=== PATIENT | male | born 1970 | race Caucasian/White ===

== ENCOUNTER → 2016-10-10 | Outpatient (CLI) | payer OTHER ==
--- NOTE | 2016-10-10 10:57 | KCIC ---
MR of the left elbow Indication:Left elbow pain since May 2016. No injury. Pain with extension. Tendinitis. Technique: Standard multiplanar sequences are obtained. Findings: Anterior: Biceps tendon and brachialis tendon are intact. Posterior: The triceps tendon and insertion are intact. Medial: Common flexor tendon intact. Mild thickening and signal at the proximal ulnar collateral ligament, questionable significance, could indicate mild degeneration or scarring. No acute tear, rupture or laxity. No adjacent acute edema. Lateral: Mild thickening and signal within the common extensor tendon attachment compatible with mild tendinosis. Proximal radial collateral ligament and lateral ulnar collateral ligament are intact. Fluid: No significant effusion. Joints: No advanced DJD. Bones: No focal lesion. No acute fracture. Soft tissues: No concerning edema or fluid accumulation Ulnar nerve: Unremarkable Impression: 1. Mild common extensor tendinosis without high-grade tear. 2. Mild proximal ulnar collateral ligament thickening of questionable significance. Could represent mild degeneration or scarring, but no acute tear or rupture. Electronically signed by: Delroy Sharp MD (10/10/2016 10:54 AM) [facility]
== END | disposition home or self-care (01) ==
LOC: KCIC MRI 09:00
PROVIDERS: ATTEND Orthopaedic Surgery Sports Medicine
DX: M25.522 Pain in left elbow (principal)
CPT/HCPCS: 73221

== ENCOUNTER 2017-07-07 14:30 | Inpatient (IN) | payer OTHER ==
[2017-07-07] MEDS: diazePAM 5 MG TABLET PO ×2 (14:54→22:48)
[2017-07-07] MEDS ORDERED: ACETAMINOPHEN 325 MG TABLET. PO (15:00)
[2017-07-07 15:09] LABS: ADD MAN DIFF? NO
[2017-07-07 15:13] LABS: BASO # 0.1 x10^3/uL (0.0-0.2); BASO % 0 % (0-3); EOS % 0 % (0-3); HEMOGLOBIN 17.9 g/dL (13.0-17.5); LYMPH # 1.6 x10^3/uL (1.0-4.8); LYMPH % 12 % (24-48); MEAN CORPUSCULAR HEMOGLOBIN 32 pg (25-35); MEAN CORPUSCULAR HGB CONC 36 g/dL (31-37); MEAN CORPUSCULAR VOLUME 88 fL (79-100); MONO # 0.9 x10^3/uL (0.0-1.1); MONO % 7 % (0-9); NEUT # 10.5 x10^3uL (1.8-7.7); NEUT % 80 % (31-73); PLATELET COUNT 212 x10^3/uL (140-400); RED BLOOD COUNT 5.67 x10^6/uL (4.30-5.70); RED CELL DISTRIBUTION WIDTH 12.2 % (11.5-14.5); WHITE BLOOD COUNT 13.1 x10^3/uL (4.0-11.0)
[2017-07-07] MEDS: ONDANSETRON PF 4 MG/2 ML VIAL. IV (15:16)
[2017-07-07] MEDS: MORPHINE SULFATE 4 MG/ML DISP.SYRIN. IV ×4 (15:17→22:48)
[2017-07-07 15:19] LABS: ANION GAP 11 (6-14); BLOOD UREA NITROGEN 17 mg/dL (8-26); CALCIUM 9.1 mg/dL (8.5-10.1); CARBON DIOXIDE 26 mmol/L (21-32); CHLORIDE 97 mmol/L (98-107); GFR 81.2; GLUCOSE 98 mg/dL (70-99); POTASSIUM 4.3 mmol/L (3.5-5.1); SODIUM 134 mmol/L (136-145)
[2017-07-07 16:31] LABS: BILIRUBIN,URINE NEGATIVE (NEG); CLARITY,URINE CLEAR; COLOR,URINE YELLOW; GLUCOSE,URINE NEGATIVE (NEG); NITRITE,URINE NEGATIVE (NEG); PH,URINE 5.5; PROTEIN,URINE NEGATIVE (NEG-TRACE); UROBILINOGEN,URINE 0.2 mg/dL (0.2 mg/dL)
[2017-07-07 16:37] LABS: BACTERIA,URINE 0 /HPF (0-FEW); HYALINE CASTS, URINE OCCASIONAL /HPF; RBC,URINE 0 /HPF (0-2); SQUAMOUS EPITHELIAL CELL,UR OCC /LPF; WBC,URINE 0 /HPF (0-4)
[2017-07-07 16:39] LABS: AMPHETAMINE/METHAMPHETAMINE NEG (NEG); BARBITURATES NEG (NEG); BENZODIAZEPINES POS (NEG); CANNABINOIDS POS (NEG); COCAINE NEG (NEG); ETHANOL, URINE NEG (NEG); METHADONE NEG (NEG); OPIATES POS (NEG); PHENCYCLIDINE NEG (NEG)
[2017-07-08] MEDS: MORPHINE SULFATE 4 MG/ML DISP.SYRIN. IV ×9 (04:33→22:56)
[2017-07-08] MEDS ORDERED: ONDANSETRON PF 4 MG/2 ML VIAL. IV (16:15)
[2017-07-08] MEDS: diazePAM 5 MG TABLET PO (20:47)
[2017-07-09] MEDS: MORPHINE SULFATE 4 MG/ML DISP.SYRIN. IV ×9 (01:11→21:34)
[2017-07-09] MEDS ORDERED: IV RINGERS,LACTATED 1000ML 1,000 ML IV ×2 (09:27)
[2017-07-09] MEDS ORDERED: ONDANSETRON PF 4 MG/2 ML VIAL. IV ×2 (09:30)
[2017-07-09] MEDS ORDERED: fentaNYL PF VIAL 100 MCG/2 ML VIAL IV ×3 (09:30)
[2017-07-09] MEDS ORDERED: PROCHLORPERAZINE 10 MG/2 ML VIAL. IV ×2 (09:30)
[2017-07-09] MEDS ORDERED: MORPHINE SULFATE 2 MG/ML DISP.SYRIN. IV (09:30)
[2017-07-09] MEDS ORDERED: MORPHINE SULFATE 4 MG/ML DISP.SYRIN. IV (09:30)
[2017-07-09] MEDS ORDERED: LIDOCAINE 1% PF 2 ML VIAL. ID (09:30)
[2017-07-09] MEDS ORDERED: PROPOFOL 40 ML IV (10:50)
[2017-07-09] MEDS ORDERED: LIDOCAINE 2% PF Vial for OR 5 ML VIAL. (10:50)
[2017-07-09] MEDS ORDERED: MIDAZOLAM HCL/PF 2 MG/2 ML VIAL. (10:51)
[2017-07-09] MEDS ORDERED: fentaNYL PF VIAL 100 MCG/2 ML VIAL ×3 (11:31→13:47)
[2017-07-09] MEDS ORDERED: KETAMINE HCL 500 MG/10 ML VIAL. (12:01)
[2017-07-09] MEDS: fentaNYL PF VIAL 100 MCG/2 ML VIAL IV ×3 (13:13→13:52)
[2017-07-09] MEDS: LIDOCAINE 1% PF 2 ML VIAL. ID (13:40)
[2017-07-09] MEDS ORDERED: DOCUSATE SODIUM 100 MG CAPSULE. PO (21:30)
[2017-07-09] MEDS: oxyCODONE/APAP 5/325 1 TAB TABLET PO (22:16)
[2017-07-09] MEDS: diazePAM 5 MG TABLET PO (22:23)
[2017-07-10] MEDS: MORPHINE SULFATE 4 MG/ML DISP.SYRIN. IV ×4 (05:58→20:20)
[2017-07-10] MEDS: oxyCODONE/APAP 5/325 1 TAB TABLET PO ×4 (06:33→21:04)
[2017-07-10] MEDS: diazePAM 5 MG TABLET PO ×2 (10:49→22:50)
[2017-07-10] MEDS ORDERED: DOCUSATE SODIUM 100 MG CAPSULE. PO (21:30)
[2017-07-11] MEDS: MORPHINE SULFATE 4 MG/ML DISP.SYRIN. IV ×2 (05:08→20:53)
[2017-07-11] MEDS ORDERED: KETOROLAC 60 MG/2 ML INJ FOR OR. (07:20)
[2017-07-11] MEDS ORDERED: THROMBIN TOPICAL 20,000 UNIT SPRAY.SYRN KIT TP (07:20)
[2017-07-11] MEDS ORDERED: GELATIN SPONGE SIZE 100. (07:20)
[2017-07-11] MEDS: IV RINGERS,LACTATED 1000ML 1,000 ML IV (07:52)
[2017-07-11] MEDS ORDERED: MORPHINE SULFATE 4 MG/ML DISP.SYRIN. IV (08:00)
[2017-07-11] MEDS ORDERED: ONDANSETRON PF 4 MG/2 ML VIAL. IV (08:00)
[2017-07-11] MEDS ORDERED: LIDOCAINE 1% PF 2 ML VIAL. ID (08:00)
[2017-07-11] MEDS ORDERED: fentaNYL PF VIAL 100 MCG/2 ML VIAL IV (08:00)
[2017-07-11] MEDS ORDERED: PROCHLORPERAZINE 10 MG/2 ML VIAL. IV (08:00)
[2017-07-11] MEDS: oxyCODONE/APAP 5/325 1 TAB TABLET PO ×3 (08:09→22:14)
[2017-07-11] MEDS ORDERED: BUPIVAC MPF-EPI 0.5%-1:200000 30 ML VIAL. INJ (09:00)
[2017-07-11] MEDS: BACITRACIN 50,000 UNIT in IV NORMAL SALINE 1000ML BAG 1,000 ML IRR ×2 (09:00→17:28)
[2017-07-11] MEDS ORDERED: MIDAZOLAM HCL/PF 2 MG/2 ML VIAL. (16:32)
[2017-07-11] MEDS ORDERED: ROCURONIUM 50 MG/5 ML VIAL. (16:36)
[2017-07-11] MEDS ORDERED: REMIFENTANIL 1 MG VIAL. IV ×2 (16:36→17:37)
[2017-07-11] MEDS ORDERED: KETOROLAC 30 MG/ML INJ FOR OR. INJ (17:13)
[2017-07-11] MEDS ORDERED: PROPOFOL 20 ML IV ×2 (17:13→17:18)
[2017-07-11] MEDS ORDERED: DEXAMETHASONE SOD PHOS 20 MG/5 ML VIAL. (17:13)
[2017-07-11] MEDS ORDERED: ONDANSETRON PF 4 MG/2 ML VIAL. (17:13)
[2017-07-11] MEDS ORDERED: ISOFLURANE 61 TO 120 MINUTES. IH (17:13)
[2017-07-11] MEDS: GELATIN SPONGE SIZE 100. (17:28)
[2017-07-11] MEDS: BUPIVAC MPF-EPI 0.5%-1:200000 30 ML VIAL. INJ (17:28)
[2017-07-11] MEDS: THROMBIN TOPICAL 20,000 UNIT SPRAY.SYRN KIT TP (17:28)
[2017-07-11] MEDS: KETOROLAC 60 MG/2 ML INJ FOR OR. (17:28)
[2017-07-11] MEDS ORDERED: MORPHINE SULFATE 10 MG/ML VIAL. (17:37)
[2017-07-11] MEDS ORDERED: LABETALOL 20 MG/4 ML DISP.SYRIN. (17:39)
[2017-07-11] MEDS ORDERED: fentaNYL PF VIAL 100 MCG/2 ML VIAL ×2 (19:06→19:18)
[2017-07-11] MEDS: fentaNYL PF VIAL 100 MCG/2 ML VIAL IV ×4 (19:10→19:37)
[2017-07-12] MEDS: MORPHINE SULFATE 4 MG/ML DISP.SYRIN. IV ×6 (01:08→18:34)
[2017-07-12] MEDS: diazePAM 5 MG TABLET PO ×2 (03:26→09:44)
[2017-07-12] MEDS ORDERED: MORPHINE SULFATE 4 MG/ML DISP.SYRIN. (05:40)
[2017-07-12 09:49] LABS: BASO % 0 % (0-3); EOS % 0 % (0-3); HEMATOCRIT 40.1 % (39.0-53.0); LYMPH # 0.7 x10^3/uL (1.0-4.8); LYMPH % 5 % (24-48); MEAN CORPUSCULAR HEMOGLOBIN 31 pg (25-35); MEAN CORPUSCULAR HGB CONC 35 g/dL (31-37); MEAN CORPUSCULAR VOLUME 90 fL (79-100); MONO # 0.4 x10^3/uL (0.0-1.1); MONO % 2 % (0-9); NEUT # 14.6 x10^3uL (1.8-7.7); NEUT % 93 % (31-73); PLATELET COUNT 159 x10^3/uL (140-400); RED BLOOD COUNT 4.47 x10^6/uL (4.30-5.70); RED CELL DISTRIBUTION WIDTH 12.2 % (11.5-14.5); WHITE BLOOD COUNT 15.8 x10^3/uL (4.0-11.0)
[2017-07-12 09:56] LABS: ANION GAP 9 (6-14); BLOOD UREA NITROGEN 12 mg/dL (8-26); CALCIUM 8.9 mg/dL (8.5-10.1); CARBON DIOXIDE 26 mmol/L (21-32); CHLORIDE 101 mmol/L (98-107); CREATININE 0.9 mg/dL (0.7-1.3); GFR 91.7; GLUCOSE 167 mg/dL (70-99); POTASSIUM 3.7 mmol/L (3.5-5.1); SODIUM 136 mmol/L (136-145)
[2017-07-12 09:57] LABS: ADD MAN DIFF? YES
[2017-07-12 11:00] LABS: % BANDS 1 % (0-9); % LYMPHS 5 % (24-48); % MONOS 2 % (0-10); % SEGS 92 % (35-66); PLT ESTIMATE ADEQUATE (ADEQUATE)
[2017-07-12] MEDS: oxyCODONE/APAP 5/325 1 TAB TABLET PO ×3 (14:00→20:55)
[2017-07-12] MEDS: CALCIUM CARBONATE 500 MG TAB.CHEW PO (15:08)
[2017-07-12] MEDS: KETOROLAC TROMETHAMINE 10 MG TABLET PO (20:54)
[2017-07-13] MEDS: oxyCODONE/APAP 5/325 1 TAB TABLET PO (07:57)
[2017-07-13] MEDS: KETOROLAC TROMETHAMINE 10 MG TABLET PO ×2 (07:57→12:03)
[2017-07-13] MEDS: oxyCODONE/APAP 7.5/325 1 TAB TABLET PO (12:03)
== END 2017-07-13 13:00 | disposition home or self-care (01) | DRG 520 ==
LOC: ER 14:30 → 4 NORTH 14:47
PROC: 0SB20ZZ Excision of Lumbar Vertebral Disc, Open Approach (ICD-10-PCS; principal; 2017-07-11 15:45)
DX: M51.16 Intervertebral disc disorders with radiculopathy, lumbar region (principal); Z79.899 Other long term (current) drug therapy
CPT/HCPCS: 36415; 72100; 72148; 76000; 80048; 80307; 81001; 85007; 85025; 96374; 97110-GP; 97116-GP; 97162-GP; 97530-GP; 99285; 99285-25; A7015; G8978-CK-GP; G8979-CJ-GP; J0690; J1100; J1885; J2250; J2270; J2405; J2704; J3010; J3490; J7030

== ENCOUNTER 2018-10-11 12:07 | Emergency (ER) | payer OTHER ==
[~2018-10-11] VITALS: Ht 200.7 cm; Wt 106.6 kg
--- NOTE | 2018-10-11 12:35 | PHYS DOC ---
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 Patient states that his boss was asked to her and soft this happened. Patient states that the boss said that he had to go to the hospital and be checked out before he could return to work. Review of Systems Review of Systems Constitutional: Denies fever or chills [] Eyes: Denies change in visual acuity, redness, or eye pain [] HENT: Denies nasal congestion or sore throat [] Respiratory: Denies cough or shortness of breath [] Cardiovascular: No additional information not addressed in HPI [] GI: Denies abdominal pain, nausea, vomiting, bloody stools or diarrhea [] : Denies dysuria or hematuria [] Musculoskeletal: Fall. Denies back pain or joint pain [] Integument: Denies rash or skin lesions [] Neurologic: Denies headache, focal weakness or sensory changes [] Endocrine: Denies polyuria or polydipsia [] All other systems were reviewed and found to be within normal limits, except as documented in this note. Allergies Allergies Allergies Coded Allergies Type Severity Reaction Last Updated Verified No Known Drug Allergies 07/07/17 No Physical Exam Physical Exam Constitutional: Well developed, well nourished, no acute distress, non-toxic appearance. [] HENT: Normocephalic, atraumatic, bilateral external ears normal, oropharynx moist, no oral exudates, nose normal. [] Eyes: PERRLA, EOMI, conjunctiva normal, no discharge. [] Neck: Normal range of motion, no tenderness, supple, no stridor. [] Cardiovascular:Heart rate regular rhythm, no murmur [] Lungs & Thorax: Bilateral breath sounds clear to auscultation [] Abdomen: Bowel sounds normal, soft, no tenderness, no masses, no pulsatile rodrigue s. [] Skin: Warm, dry, no erythema, no rash. [] Back: No tenderness, no CVA tenderness. [] Extremities: No tenderness, no cyanosis, no clubbing, ROM intact, no edema. [] Neurologic: Alert and oriented X 3, normal motor function, normal sensory function, no focal deficits noted. [] Psychologic: Affect normal, judgement normal, mood normal. 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 Patient states that his boss was asked to her and soft this happened. Patient states that the boss said that he had to go to the hospital and be checked out before he could return to work. Patient denies any pain, injury, hitting his head, LOC, nausea, vomiting, diarrhea, recent illness, chest pain, shortness of air, dizziness, headache. Ambulatory with a steady gait. Skin pink warm and dry. Alert and oriented. Speaks in full clear sentences. Patient has no spinal pain with palpation. Patient has range of motion that is intact in his cervical spine and lumbar spine and thoracic spine. Patient has no abrasions, lacerations, bruises, bumps. PERRLA. Vital signs are within normal limits. Patient states that he is fine and is frustrated that he even had to come to the emergency room because his boss saw him. Patient is stable and discharged home. Patient to follow up with primary care doctor if needed. Gisela Disclaimer Gisela Disclaimer This electronic medical record was generated, in whole or in part, using a voice recognition dictation system. Departure Departure Impression: Primary Impression: Encounter for medical screening examination Disposition: HOME, SELF-CARE Condition: STABLE Referrals: TERESO JOSÉ APRN (PCP) Patient Instructions: Medical Screening Exam Additional Instructions: FOLLOW UP WITH PRIMARY CARE PROVIDER IF NEEDED. Scripts No Active Prescriptions or Reported Meds ANASTACIO VINES APRN Oct 11, 2018 12:35
[2018-10-11 13:06] VITALS: BP 131/72
== END 2018-10-11 13:10 | disposition home or self-care (01) ==
LOC: ER 12:07
DX: Z04.3 Encounter for examination and observation following other accident (principal); Z90.89 Acquired absence of other organs; W18.39XA Other fall on same level, initial encounter; Y93.89 Activity, other specified; Y92.89 Other specified places as the place of occurrence of the external cause; Y99.8 Other external cause status
CPT/HCPCS: 99281

== ENCOUNTER → 2020-12-26 | Outpatient (CLI) | payer OTHER ==
[2020-12-26 09:43] LABS: BASO # 0.1 x10^3/uL (0.0-0.2); BASO % 1 % (0-3); EOS # 0.2 x10^3/uL (0.0-0.7); EOS % 2 % (0-3); HEMOGLOBIN 14.3 g/dL (13.0-17.5); LYMPH # 1.8 x10^3/uL (1.0-4.8); LYMPH % 25 % (24-48); MEAN CORPUSCULAR HEMOGLOBIN 31 pg (25-35); MEAN CORPUSCULAR HGB CONC 34 g/dL (31-37); MEAN CORPUSCULAR VOLUME 90 fL (79-100); MONO # 0.7 x10^3/uL (0.0-1.1); MONO % 9 % (0-9); NEUT # 4.6 x10^3/uL (1.8-7.7); NEUT % 63 % (31-73); PLATELET COUNT 202 x10^3/uL (140-400); RED BLOOD COUNT 4.69 x10^6/uL (4.30-5.70); RED CELL DISTRIBUTION WIDTH 12.7 % (11.5-14.5); WHITE BLOOD COUNT 7.3 x10^3/uL (4.0-11.0)
[2020-12-26 09:52] LABS: ALBUMIN 3.6 g/dL (3.4-5.0); ALBUMIN/GLOBULIN RATIO 1.1 (1.0-1.7); CALCIUM 8.5 mg/dL (8.5-10.1); CREATININE 0.9 mg/dL (0.7-1.3); GFR 90.1; POTASSIUM 4.4 mmol/L (3.5-5.1); TOTAL BILIRUBIN 0.6 mg/dL (0.2-1.0); TOTAL PROTEIN 6.9 g/dL (6.4-8.2)
[2020-12-26 10:10] LABS: CHOLESTEROL/HDL RATIO 5.8
== END ==
LOC: CLNUT 09:08
PROVIDERS: ATTEND Nurse Practitioner
DX: F32.0 Major depressive disorder, single episode, mild (principal)
CPT/HCPCS: 36415; 80053; 80061; 84443; 85025; G0103

== ENCOUNTER → 2021-04-22 | Day surgery (SDC) | payer OTHER ==
[~2021-04-22] VITALS: Ht 200.7 cm; Wt 115.4 kg
[~2021-04-22] MED LIST: IV RINGERS,LACTATED 1000ML 1,000 ML IV SCH; LIDOCAINE 2% PF 5 ML VIAL. ONE; OMEP40CA7 PO; PROPOFOL 10 MG/ML (20ML) VIAL. IV ONE; ZOLP10TA PO
[2021-04-22 06:12] VITALS: BP 132/71
--- NOTE | 2021-04-22 07:36 | CONS ---
DATE OF CONSULTATION: 04/22/2021 UPDATED HISTORY AND PHYSICAL REASON FOR CONSULTATION: Colorectal screening. HISTORY OF PRESENT ILLNESS: A 50-year-old male with past medical history significant for gastroesophageal reflux disease, seen for colonoscopy. Bowel habits are regular without diarrhea or constipation. There has been no melena and/or hematochezia. Weight and appetite are stable. He is otherwise without additional complaints. PAST MEDICAL HISTORY: GERD. ALLERGIES: None. MEDICATIONS: Omeprazole and Ambien. FAMILY AND SOCIAL HISTORY: Significant for breast cancer in a grandmother, hypertension in father and brothers. SOCIAL HISTORY: Current smoker and social drinker. PAST SURGICAL HISTORY: Noncontributory. REVIEW OF SYSTEMS: Per records. PHYSICAL EXAMINATION: GENERAL: Reveals a well-nourished, well-developed male. VITAL SIGNS: Temperature 97.3, pulse 74, respiratory rate 18. LUNGS: Clear. CARDIOVASCULAR: Reveals an S1, S2, without S3, S4 or appreciable murmur. ABDOMEN: Reveals a soft abdomen, normal bowel sounds, without appreciable hepatosplenomegaly. EXTREMITIES: Reveals no cyanosis, clubbing or edema. IMPRESSION AND PLAN: Colorectal screening is recommended at this time. Risks and benefits of procedure including risk of hemorrhage and perforation for operation were discussed. The patient is willing to proceed. WALTER/EDY DR: Elvin TID: [id number]
[2021-04-22 08:03] VITALS: BP 122/78
--- NOTE | 2021-04-25 16:08 | PATHOLOGY ---
[facility] Accession Number: [id number] . 01 Material submitted: . PART A: rectum - RECTAL POLYP PART B: colon - TRANSVERSE COLON POLYP. Modifiers: transverse PART C: cecum - CECAL POLYP . 01 Clinical history: . SCREENING COLONOSCOPY CRC SCREENING . 02 Diagnosis: A. Colorectal biopsies, rectal polyps: - Hyperplastic polyps. . B. Colon biopsies, transverse colon polyps: - Tubular adenomas. . C. Colon biopsies, cecal polyps: - Consistent with prominent mucosal folds, with two mucosal-associated lymphoid aggregates. . (JPM:dereje; 04/25/2021) [facility] 04/25/2021 1520 Local . 02 Comment: There is no high-grade dysplasia or evidence of malignancy. (JPM:dereje; 04/25/2021) . 02 Electronically signed: . Tad Holley MD, Pathologist NPI- [id number] . 01 Gross description: . A. Received in formalin labeled "Forjameys, Brent, rectal polyp" are multiple fuentes-brown soft tissue fragments measuring in aggregate 1.4 x 0.5 x 0.3 cm. The specimen is submitted entirely in A1. . B. Received in formalin labeled "Forbis, Brent, transverse colon polyp" are multiple fuentes-brown soft tissue fragments measuring in aggregate 0.9 x 0.5 x 0.3 cm. The specimen is submitted entirely in B1. . C. Received in formalin labeled "Forbis, Brent, cecal polyp" are multiple fuentes-brown soft tissue fragments measuring in aggregate 0.9 x 0.5 x 0.2 cm. The specimen is submitted entirely in C1. ([facility]; 04/24/2021) . . . . . . GZA/GZA 04/25/[address] [place] [address] Pathologist provided ICD-10: K62.1, D12.3, Z12.11 . 02 CPT . 616054, 349709, [id number] Specimen Comment: A courtesy copy of this report has been sent to [phone], [phone] Specimen Comment: [id number] Specimen Comment: Report sent to / DR JOSÉ Performed at: [facility] [address] [facility] [address], [place] [id number] MD Maximiliano Chaudhari MD Phone: [phone] Performed at: [facility] [address] [place], [place] [id number] MD Tad Holley MD Phone: [phone]
== END | disposition home or self-care (01) ==
LOC: ENDOS 05:54
PROVIDERS: ATTEND Internal Medicine Gastroenterology
DX: Z12.11 Encounter for screening for malignant neoplasm of colon (principal); K64.0 First degree hemorrhoids; D12.3 Benign neoplasm of transverse colon; K63.89 Other specified diseases of intestine; K21.9 Gastro-esophageal reflux disease without esophagitis; F41.9 Anxiety disorder, unspecified; F32.9 Major depressive disorder, single episode, unspecified; F17.210 Nicotine dependence, cigarettes, uncomplicated; Z72.89 Other problems related to lifestyle; Z79.899 Other long term (current) drug therapy; Z98.890 Other specified postprocedural states; Z82.49 Family history of ischemic heart disease and other diseases of the circulatory system; Z80.3 Family history of malignant neoplasm of breast
CPT/HCPCS: 45380; J2704